=== PATIENT | female | born 1995 | race Caucasian/White ===

== ENCOUNTER 2020-11-27 13:04 | Emergency (ER) | payer SELFPAY ==
[~2020-11-27] VITALS: Ht 160 cm; Wt 84.0 kg
[2020-11-27 13:12] VITALS: BP 126/60
[2020-11-27] MEDS ORDERED: KETOROLAC 15 MG/ML VIAL. IVP ONE (13:30)
--- NOTE | 2020-11-27 13:30 | ED.ADGEN ---
General Adult EDM: Chief Complaint: LOWER BACK PAIN OR INJURY HPI: HPI: Patient is a 25 year old female sent from urgent care for further evaluation of low back pain with sciatica. Is concerned because patient has some saddle anesthesia and had an episode of incontinence last night. She says that is when her back spasm she lost a small volume of urine because she was having difficulty closing her legs. Patient states the pain has been gradually getting worse and she feels like her back is spasming at the low midline level. States she has had prior episodes in the past but is more severe this time. Is been ta felisa Tylenol without improvement. 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 Patient denies any fevers, recent weight loss, night sweats, bowel incontinence, or history of IV drug use. Patient does have a family history of breast cancer. Patient has no personal medical history. Denies any vaginal bleeding or discharge, no dysuria or hematuria. Patient describes the pain as tingling like her legs are asleep that radiates down the back of her thighs to her calves, does not extend to her feet. Review of Systems: Review of Systems: All other systems within normal limits except for as noted in the HPI Current Medications: Current Medications Medications (Trade) Dose Ordered Sig/Barbara Start Time Stop Time Status Last Admin Dose Admin Fentanyl Citrate (Fentanyl 2ml Vial) 75 mcg 1X ONCE 11/27/20 14:00 11/27/20 14:03 DC 11/27/20 14:19 75 MCG Ketorolac Tromethamine (Toradol 15mg Vial) 15 mg 1X ONCE 11/27/20 13:30 11/27/20 13:31 DC 11/27/20 13:51 15 MG Morphine Sulfate (Morphine Sulfate) 5 mg 1X ONCE 11/27/20 15:15 11/27/20 15:16 DC 11/27/20 15:09 5 MG Allergies: Allergies: Allergies Coded Allergies Type Severity Reaction Last Updated Verified No Known Drug Allergies 11/27/20 No Physical Exam: PE: Constitutional: Well developed, well nourished, no acute distress, non-toxic appearance. [] HENT: Normocephalic, atraumatic, bilateral external ears normal, nose normal. [] Eyes: PERRLA, conjunctiva normal, no discharge. [] Neck: No rigidity, supple, no stridor. [] Cardiovascular: Regular rate and rhythm, brisk cap refill [] Lungs & Thorax: Non labored symmetric respirations, no tachypnea or respiratory distress [] Abdomen: Soft, nondistended. Skin: Warm, dry, no erythema, no rash. [] Back: No step-offs or deformities, point tenderness over L4, L5, sacrum. No tenderness on pelvis. Bilateral straight leg and cross straight leg testing negative. Extremities: No deformities, range of motion grossly intact, no lower extremity edema [] Neurologic: Alert and oriented X 3, no focal deficits noted. [] Decreased sensation on bilateral inner thigh, left greater than right Psychologic: Affect normal, judgement normal, mood normal. [] Current Patient Data: Labs: Laboratory Tests Test 11/27/20 13:10 11/27/20 13:28 11/27/20 13:40 Urine Collection Type Unknown Urine Color Yellow Urine Clarity Clear Urine pH 7.5 (<5.0-8.0) Urine Specific [place] 1.015 (1.000-1.030) Urine Protein Negative mg/dL (NEG-TRACE) Urine Glucose (UA) Negative mg/dL (NEG) Urine Ketones (Stick) Negative mg/dL (NEG) Urine Blood Negative (NEG) Urine Nitrite Negative (NEG) Urine Bilirubin Negative (NEG) Urine Urobilinogen Dipstick 1.0 mg/dL (0.2 mg/dL) Urine Leukocyte Esterase Large (NEG) Urine RBC Occ /HPF (0-2) Urine WBC 5-10 /HPF (0-4) Urine Squamous Epithelial Cells Many /LPF Urine Bacteria Few /HPF (0-FEW) POC Urine HCG, Qualitative Hcg negative (Negative) White Blood Count 7.8 x10^3/uL (4.0-11.0) Red Blood Count 4.39 x10^6/uL (3.50-5.40) Hemoglobin 13.6 g/dL (12.0-15.5) Hematocrit 38.9 % (36.0-47.0) Mean Corpuscular Volume 89 fL (79-100) Mean Corpuscular Hemoglobin 31 pg (25-35) Mean Corpuscular Hemoglobin Concent 35 g/dL (31-37) Red Cell Distribution Width 12.7 % (11.5-14.5) Platelet Count 216 x10^3/uL (140-400) Neutrophils (%) (Auto) 57 % (31-73) Lymphocytes (%) (Auto) 31 % (24-48) Monocytes (%) (Auto) 9 % (0-9) Eosinophils (%) (Auto) 3 % (0-3) Basophils (%) (Auto) 1 % (0-3) Neutrophils # (Auto) 4.4 x10^3/uL (1.8-7.7) Lymphocytes # (Auto) 2.4 x10^3/uL (1.0-4.8) Monocytes # (Auto) 0.7 x10^3/uL (0.0-1.1) Eosinophils # (Auto) 0.2 x10^3/uL (0.0-0.7) Basophils # (Auto) 0.1 x10^3/uL (0.0-0.2) Sodium Level 142 mmol/L (136-145) Potassium Level 3.7 mmol/L (3.5-5.1) Chloride Level 103 mmol/L (98-107) Carbon Dioxide Level 28 mmol/L (21-32) Anion Gap 11 (6-14) Blood Urea Nitrogen 11 mg/dL (7-20) Creatinine 0.8 mg/dL (0.6-1.0) Estimated GFR (Cockcroft-Gault) 88.1 BUN/Creatinine Ratio 14 (6-20) Glucose Level 100 mg/dL (70-99) H Calcium Level 8.7 mg/dL (8.5-10.1) Total Bilirubin 0.5 mg/dL (0.2-1.0) Aspartate Amino Transferase (AST) 30 U/L (15-37) Alanine Aminotransferase (ALT) 59 U/L (14-59) Alkaline Phosphatase 63 U/L (46-116) C-Reactive Protein, Quantitative 3.8 mg/L (0-3.3) H Total Protein 7.3 g/dL (6.4-8.2) Albumin 3.8 g/dL (3.4-5.0) Albumin/Globulin Ratio 1.1 (1.0-1.7) Laboratory Tests 11/27/20 13:40 Laboratory Tests 11/27/20 13:40 Vital Signs: Vital Signs Date Time Temp Pulse Resp B/P (MAP) Pulse Ox O2 Delivery O2 Flow Rate FiO2 2/21/21 13:12 98.4 81 18 126/60 (82) 97 Room Air 98.4 EKG: EKG: [] Heart Score: Risk Factors: Risk Factors: DM, Current or recent (<one month) smoker, HTN, HLP, family history of CAD, obesity. Risk Scores: Score 0 - 3: 2.5% MACE over next 6 weeks - Discharge Home Score 4 - 6: 20.3% MACE over next 6 weeks - Admit for Clinical Observation Score 7 - 10: 72.7% MACE over next 6 weeks - Early Invasive Strategies Radiology/Procedures: Radiology/Procedures: Indication: Reason: radiculopathy, incontinence. no acute injury / Spl. Instructions: / History: Procedure: Multiplanar multisequence MRI images obtained through the lumbar spine without intravenous contrast. Comparison: CT from earlier same day. Findings: No acute fracture. No significant malalignment of the lumbar spine. Degenerative changes are identified a lumbar spine as detailed below: T12-L1: No disc bulge. No significant central canal or neuroforaminal stenosis. L1-L2: No disc bulge. No significant central canal or neuroforaminal stenosis. L2-L3: Mild posterior disc bulge with minimal mass effect on the anterior aspect of the thecal sac. Mild facet and ligamentum flavum hypertrophy. Central canal is patent. Neural foramina are patent. L3-L4: Mild osteophyte formation and mild disc bulge with minimal mass effect on the anterior aspect of the thecal sac as well as the lateral recesses. Mild ligamentum flavum and facet hypertrophy. Central canal is patent. Neural foramina are patent. L4-L5: Ligamentum flavum and facet hypertrophy. Small right facet joint effusion. High T2 signal is seen at the anterior aspect of the disc inferiorly which could be from an annular tear. There is some bulging of the disc anteriorly. Central canal is patent. Mild bilateral neural foraminal stenosis. L5-S1: Facet hypertrophy. Osteophyte formation at the vertebral body endplates as well as a central disc protrusion with a small annular tear. Mild mass effect on the anterior aspect of the thecal sac with central canal patent. Mild mass effect on the lateral recesses. The exiting nerve roots are abutted by the facet hypertrophy for a short distance with moderate neural foraminal stenosis. Impression: Degenerative changes throughout the lumbar spine with disc protrusions and osteophyte formation as well as facet and ligamentum flavum hypertrophy contributing to neural foraminal stenosis as detailed above. The most severe levels is at L5-S1 where there is moderate neural foraminal stenosis. Posterior disc protrusion as well as small annular tear of the disc at L5-S1. Large region of high T2 signal seen within the L4-5 disc anteriorly which could be from an additional annular tear. There is anterior bulging of the disc at this level. No evidence of cord compression or compression of the cauda equina. INDICATION: Reason: L4-L5 pain with numbness and sciatica / Spl. Instructions: / History: . COMPARISON: None. TECHNIQUE: Axial CT images obtained through the lumbar spine and pelvis. One or more of the following individualized dose reduction techniques were utilized for this examination: 1. Automated exposure control; 2. Adjustment of the mA and/or kV according to patient size; 3. Use of iterative reconstruction technique. FINDINGS: Lumbar spine: No acute fracture or dislocation. Mild scoliotic curvature. There is some mild degenerative changes of the lumbar spine with early facet hypertrophy. There is also some disc protrusions. For example at L2-3 there is facet hypertrophy as well as a mild disc osteophyte complex with mild mass effect on the thecal sac and mild encroachment on the inferior aspect of the neural foramina. At L4-5 there is mild facet hypertrophy as well as disc osteophyte complex with mild mass effect on the thecal sac and mild bilateral neural foraminal stenosis. At L5-S1 there is a central to left paracentral disc protrusion as well as osteophyte formation at the vertebral body endplates with facet hypertrophy. This disc protrusion causes mass effect on the anterior aspect of the sac as well as partial effacement of the left greater than right lateral recess. Facet hypertrophy at this level contributes to moderate bilateral neural foraminal stenosis. Pelvis: There is some sclerosis at sacroiliac joints which could be from degenerative changes. No evidence of malalignment at the hips. No acute fracture or dislocation. Small fat-containing umbilical hernia. IMPRESSION: * No acute fracture or dislocation of the lumbar spine. * There is evidence of degenerative changes of the lumbar spine with facet hypertrophy as well as disc protrusions and osteophyte formation with mild mass effect on the thecal sac as well as mild to moderate neural foraminal stenosis as detailed above. * No acute pelvic fracture. Course & Med Decision Making: Course & Med Decision Making Pertinent Labs and Imaging studies reviewed. (See chart for details) Consulted neurosurgery and felt patient does not have any dangerous findings on imaging. Discharged with neurosurgery follow-up and pain management [] Diane Disclaimer: Diane Disclaimer: This electronic medical record was generated, in whole or in part, using a voice recognition dictation system. Departure Departure Impression: Primary Impression: Bilateral lumbar radiculopathy Additional Impression: Urinary tract infection Disposition: DC HOME SELF CARE/HOMELESS Condition: STABLE Referrals: ALENA MARTINEZ MD Patient Instructions: Back Exercises Scripts Meloxicam (MELOXICAM) 15 Mg Tablet 1 TAB PO DAILY PRN for PAIN for 10 Days, #10 TAB 0 Refills Prov: JOYCE REINA MD 11/27/20 Cyclobenzaprine Hcl (CYCLOBENZAPRINE HCL) 10 Mg Tablet 1 TAB PO TID PRN for MUSCLE SPASMS for 5 Days, #15 TAB Prov: JOYCE REINA MD 11/27/20 Cephalexin (CEPHALEXIN) 500 Mg Tablet 1 TAB PO BID for antibiotic for 5 Days, #10 TAB Prov: JOYCE REINA MD 11/27/20 Problem Qualifiers JOYCE REINA MD Nov 27, 2020 13:30
[2020-11-27 13:33] LABS: BILIRUBIN,URINE NEGATIVE (NEG); CLARITY,URINE CLEAR; COLOR,URINE YELLOW; NITRITE,URINE NEGATIVE (NEG); PH,URINE 7.5 (<5.0-8.0); PROTEIN,URINE NEGATIVE (NEG-TRACE)
[2020-11-27] MEDS ORDERED: fentaNYL PF VIAL 100 MCG/2 ML VIAL IVP ONE (14:00)
[2020-11-27 14:01] LABS: BACTERIA,URINE FEW /HPF (0-FEW); RBC,URINE OCC /HPF (0-2)
[2020-11-27 14:01] LABS: BASO # 0.1 x10^3/uL (0.0-0.2); BASO % 1 % (0-3); EOS # 0.2 x10^3/uL (0.0-0.7); EOS % 3 % (0-3); HEMATOCRIT 38.9 % (36.0-47.0); HEMOGLOBIN 13.6 g/dL (12.0-15.5); LYMPH # 2.4 x10^3/uL (1.0-4.8); LYMPH % 31 % (24-48); MEAN CORPUSCULAR HEMOGLOBIN 31 pg (25-35); MEAN CORPUSCULAR HGB CONC 35 g/dL (31-37); MEAN CORPUSCULAR VOLUME 89 fL (79-100); MONO # 0.7 x10^3/uL (0.0-1.1); MONO % 9 % (0-9); NEUT # 4.4 x10^3/uL (1.8-7.7); NEUT % 57 % (31-73); PLATELET COUNT 216 x10^3/uL (140-400); RED BLOOD COUNT 4.39 x10^6/uL (3.50-5.40); RED CELL DISTRIBUTION WIDTH 12.7 % (11.5-14.5); WHITE BLOOD COUNT 7.8 x10^3/uL (4.0-11.0)
[2020-11-27 14:05] LABS: CALCIUM 8.7 mg/dL (8.5-10.1); CREATININE 0.8 mg/dL (0.6-1.0); GFR 88.1; POTASSIUM 3.7 mmol/L (3.5-5.1)
[2020-11-27 14:11] LABS: ALBUMIN 3.8 g/dL (3.4-5.0); ALBUMIN/GLOBULIN RATIO 1.1 (1.0-1.7); C-REACTIVE PROTEIN 3.8 mg/L (0-3.3); TOTAL BILIRUBIN 0.5 mg/dL (0.2-1.0); TOTAL PROTEIN 7.3 g/dL (6.4-8.2)
--- NOTE | 2020-11-27 14:49 | RAD ---
INDICATION: Reason: L4-L5 pain with numbness and sciatica / Spl. Instructions: / History: . COMPARISON: None. TECHNIQUE: Axial CT images obtained through the lumbar spine and pelvis. One or more of the following individualized dose reduction techniques were utilized for this examinat ion: 1. Automated exposure control; 2. Adjustment of the mA and/or kV according to patient size; 3 . Use of iterative reconstruction technique. FINDINGS: Lumbar spine: No acute fracture or dislocation. Mild scoliotic curvature. There is some mild degenerative changes of the lumbar spine with early facet hypertrophy. There is al so some disc protrusions. For example at L2-3 there is facet hypertrophy as well as a mild disc osteo phyte complex with mild mass effect on the thecal sac and mild encroachment on the inferior aspect of the neural foramina. At L4-5 there is mild facet hypertrophy as well as disc osteophyte complex with mild mass effect on the thecal sac and mild bilateral neural foraminal stenosis. At L5-S1 there is a central to left paracentral disc protrusion as well as osteophyte formation at the vertebral body en dplates with facet hypertrophy. This disc protrusion causes mass effect on the anterior aspect of the sac as well as partial effacement of the left greater than right lateral recess. Facet hypertrophy a t this level contributes to moderate bilateral neural foraminal stenosis. Pelvis: There is some sclerosis at sacroiliac joints which could be from degenerative changes. No evidence of malalignment at the hips. No acute fracture or dislocation. Small fat-containing umbilical hernia. IMPRESSION: * No acute fracture or dislocation of the lumbar spine. * There is evidence of degenerative changes of the lumbar spine with facet hypertrophy as well as di sc protrusions and osteophyte formation with mild mass effect on the thecal sac as well as mild to mo derate neural foraminal stenosis as detailed above. * No acute pelvic fracture. Electronically signed by: Randall Garcia MD (11/27/2020 2:47 PM) [id number]
[2020-11-27] MEDS ORDERED: MORPHINE SULFATE 10 MG/ML VIAL. IV ONE (15:15)
--- NOTE | 2020-11-27 16:23 | RAD ---
Indication: Reason: radiculopathy, incontinence. no acute injury / Spl. Instructions: / History: Procedure: Multiplanar multisequence MRI images obtained through the lumbar spine without intravenous contrast. Comparison: CT from earlier same day. Findings: No acute fracture. No significant malalignment of the lumbar spine. Degenerative changes are identified a lumbar spine as detailed below: T12-L1: No disc bulge. No significant central canal or neuroforaminal stenosis. L1-L2: No disc bulge. No significant central canal or neuroforaminal stenosis. L2-L3: Mild posterior disc bulge with minimal mass effect on the anterior aspect of the thecal sac. M ild facet and ligamentum flavum hypertrophy. Central canal is patent. Neural foramina are patent. L3-L4: Mild osteophyte formation and mild disc bulge with minimal mass effect on the anterior aspect of the thecal sac as well as the lateral recesses. Mild ligamentum flavum and facet hypertrophy. Agapito tral canal is patent. Neural foramina are patent. L4-L5: Ligamentum flavum and facet hypertrophy. Small right facet joint effusion. High T2 signal is s een at the anterior aspect of the disc inferiorly which could be from an annular tear. There is some bulging of the disc anteriorly. Central canal is patent. Mild bilateral neural foraminal stenosis. L5-S1: Facet hypertrophy. Osteophyte formation at the vertebral body endplates as well as a central disc protrusion with a small annular tear. Mild mass effect on the anterior aspect of the thecal sac with central canal patent. Mild mass effect on the lateral recesses. The exiting nerve roots are abut fernando by the facet hypertrophy for a short distance with moderate neural foraminal stenosis. Impression: Degenerative changes throughout the lumbar spine with disc protrusions and osteophyte formation as we ll as facet and ligamentum flavum hypertrophy contributing to neural foraminal stenosis as detailed a saud. The most severe levels is at L5-S1 where there is moderate neural foraminal stenosis. Posterior disc protrusion as well as small annular tear of the disc at L5-S1. Large region of high T2 signal seen within the L4-5 disc anteriorly which could be from an additional annular tear. There is anterior bulging of the disc at this level. No evidence of cord compression or compression of the cauda equina. Electronically signed by: Randall Garcia MD (11/27/2020 4:21 PM) [id number]
[2020-11-27] MEDS ORDERED: MELO15TA23 PO (16:26)
[2020-11-27] MEDS ORDERED: CEPH500T PO (16:26)
[2020-11-27] MEDS ORDERED: CYCL10TA2 PO (16:26)
== END 2020-11-27 16:49 | disposition home or self-care (01) ==
LOC: ER 13:04
DX: N39.0 Urinary tract infection, site not specified (principal); M54.16 Radiculopathy, lumbar region
CPT/HCPCS: 36415; 72131; 72148; 72192; 80053; 81001; 81025; 85025; 86140; 87086; 96374; 96375; 99285; J1885; J2270; J3010